=== PATIENT | female | born 1985 | race Two or more races ===

== ENCOUNTER 2021-10-22 03:02 | Inpatient (IN) ==
[2021-10-22] MEDS ORDERED: Buffered Lidocaine 1% SYRIN 1 ml INTRADERM ONE (07:24)
[2021-10-22] MEDS ORDERED: Lactated Ringers 1000 ml BAG 1,000 ML IV ONE (07:24)
[2021-10-22 07:34] LABS: Urine Benzodiazepine Screen None Detected (None Detect); Urine Cannabinoids Screen None Detected (None Detect); Urine Opiates Screen None Detected (None Detect)
[2021-10-22] MEDS ORDERED: Lactated Ringers 1000 ml BAG 1,000 ML IV SCH (08:00)
[2021-10-22] MEDS ORDERED: Glycerin ADULT 2.4 gm SUPP PR PRN (23:17)
[2021-10-22] MEDS ORDERED: Witch Hazel PAD JAR TOPICAL PRN (23:17)
[2021-10-22] MEDS ORDERED: Dibucaine 1% OINT 28.35 GM TUBE PR PRN (23:17)
[2021-10-23 07:01] LABS: ABS Lymphocytes 1.2 10^3/ul (1.0-4.8); ABS Monocytes 1.5 10^3/ul (0-0.8); Eosinophil % 0.1 %; Hematocrit 38 % (35-47); Hemoglobin 13.8 g/dL (12.0-16.0); Mean Corpuscular HGB Conc 36 g/dL (31-36); Mean Corpuscular Hemoglobin 32 pg (27-31); Mean Corpuscular Volume 87 fL (80-97); Mean Platelet Volume 8.8 fL (7.4-10.4); Platelet Count 157 10^3/uL (150-450); Red Blood Count 4.35 10^6 /uL (3.70-4.87); Red Cell Distribution Width 14 % (10-15); White Blood Count 20.7 10^3/uL (3.5-10.8)
[2021-10-24 09:04] VITALS: BP 106/65
== END 2021-10-24 14:02 | disposition home or self-care (01) | DRG 560 ==
LOC: MCHOBOUT 03:02 → MCHOB 03:52
PROVIDERS: ADMIT Midwife; ATTEND Midwife